=== PATIENT | female | born 1950 | race Caucasian/White ===

== ENCOUNTER 2017-12-25 09:15 | Emergency (ER) | payer MEDICARE, MEDICAID ==
[~2017-12-25] VITALS: Ht 157.5 cm; Wt 69.0 kg
[~2017-12-25 09:15] MED LIST: FOLI-43 PO; LORA0.5T2 PO; METH2.5T PO; NAPR220T66 PO; OMEP40CA34 PO; PANT40TA4 PO; PRED5TAB48 PO
[2017-12-25] MEDS ORDERED: IBUPROFEN 600MG TABLET PO ONE (10:45)
[2017-12-25 12:15] VITALS: BP 138/75
== END 2017-12-25 12:19 | disposition home or self-care (01) ==
LOC: ER 09:56
DX: S32.028A Other fracture of second lumbar vertebra, initial encounter for closed fracture (principal); M54.5 Low back pain; M85.80 Other specified disorders of bone density and structure, unspecified site; F17.200 Nicotine dependence, unspecified, uncomplicated; Z79.899 Other long term (current) drug therapy; Z98.890 Other specified postprocedural states; X58.XXXA Exposure to other specified factors, initial encounter; Y93.89 Activity, other specified; Y92.89 Other specified places as the place of occurrence of the external cause; Y99.8 Other external cause status
CPT/HCPCS: 72100; 99284

== ENCOUNTER 2018-01-26 12:09 | Inpatient (IN) | payer MEDICARE, MEDICAID ==
[~2018-01-26] VITALS: Ht 152.4 cm; Wt 54.0 kg
[2018-01-26] MEDS ORDERED: MAGNESIUM/ALUMINUM HYDROXIDE/SIMETHICONE 30ML UDC PO STA (13:51)
[2018-01-26] MEDS ORDERED: SODIUM CHLORIDE 0.9% 1,000 ML IV ONE (13:51)
[2018-01-26] MEDS ORDERED: FAMOTIDINE 20MG/2ML VIAL IV STA (13:51)
[2018-01-26] MEDS ORDERED: ONDANSETRON HCL 4MG/2ML INJ IV STA (13:51)
[2018-01-26 14:20] LABS: CLARITY URINE CLEAR (CLEAR); COLOR URINE YELLOW (YELLOW); KETONES URINE NEGATIVE (NEGATIVE); LEUKOCYTE ESTERASE URINE 2+ (NEGATIVE); NITRITE URINE NEGATIVE (NEGATIVE); OCCULT BLOOD URINE 1+ (NEGATIVE); PROTEIN URINE NEGATIVE (NEGATIVE); SPECIFIC GRAVITY URINE 1.003 (1.005-1.030); UROBILINOGEN URINE 0.2 E.U./dL (0.2-1.0)
[2018-01-26 14:56] LABS: BASOPHILS % 0.8 % (0.0-2.0); EOSINOPHILS % 3.4 % (0.0-5.0); HEMATOCRIT. 36.6 % (36.0-48.0); HEMOGLOBIN. 12.5 g/dL (12.0-16.0); LYMPHOCYTES % 23.9 % (20.0-50.0); MEAN CORPUSCULAR HEMOGLOBIN 29.4 pg (28.0-32.0); MEAN CORPUSCULAR VOLUME 86.1 fL (81.0-99.0); MEAN PLATELET VOLUME 9.4 fl (7.4-10.4); NEUTROPHILS % 66.9 % (40.0-76.0); PLATELET 332 x1000/uL (130-400); RED BLOOD CELL COUNT 4.25 mill/uL (4.2-5.4)
[2018-01-26 15:09] LABS: CHLORIDE 108 mEq/L (98-107)
[2018-01-26] MEDS ORDERED: POTASSIUM CHLORIDE 20MEQ/PACKET PO ONE (15:45)
[2018-01-26] MEDS ORDERED: MORPHINE SULFATE 4 MG/ML CPJ (NOT FOR IM USE) IV ONE (15:45)
[2018-01-26] MEDS ORDERED: POTASSIUM CHLORIDE 20MEQ TABLET SR PO NR (17:00)
[2018-01-26] MEDS ORDERED: METRONIDAZOLE 500 MG PREMIX 100 ML IV ONE (18:15)
[2018-01-26] MEDS ORDERED: LEVOFLOXACIN 750MG PREMIX 150 ML IV ONE (18:15)
[2018-01-26] MEDS ORDERED: HYDROMORPHONE HCL/PF 2MG/ML CPJ IV ONE (18:15)
[2018-01-26] MEDS ORDERED: IOHEXOL-300 100 ML BOTTLE ONE (22:10)
[2018-01-26 22:40] VITALS: BP 130/62
[2018-01-27] MEDS ORDERED: HYDR-4001 PO (01:19)
[2018-01-27 04:00] VITALS: BP 105/53
[2018-01-27] MEDS ORDERED: ACETAMINOPHEN 325MG TABLET PO PRN (05:00)
[2018-01-27] MEDS ORDERED: LORAZEPAM 0.5MG TABLET PO PRN (05:15)
[2018-01-27] MEDS ORDERED: HYDROCODONE/ACETAMINOPHEN 5/325MG TABLET PO PRN (05:15)
[2018-01-27] MEDS: PANTOPRAZOLE 40MG DR TABLET PO SCH (06:57)
[2018-01-27] MEDS: MORPHINE SULFATE 4 MG/ML CPJ (NOT FOR IM USE) IV PRN ×2 (07:10→19:33)
[2018-01-27] MEDS ORDERED: OMEPRAZOLE 20MG CAPSULE EXTENDED RELEASE PO SCH (07:20)
[2018-01-27] MEDS ORDERED: INFLUENZA VIRUS VACCINE(AFLURIA) 0.5ML SYR IM ONE (08:00)
[2018-01-27] MEDS ORDERED: PNEUMOCOCCAL 23-VAL P-SAC VAC 0.5 ML IM ONE (08:00)
[2018-01-27] MEDS: FOLIC ACID 1MG TABLET PO SCH (09:27)
[2018-01-27] MEDS: PREDNISONE 20MG TABLET PO SCH (09:27)
[2018-01-27] MEDS: DEXT 5%/0.45% NACL KCL 20MEQ/L 1,000 ML IV SCH ×2 (09:27→16:00)
[2018-01-27 11:22] LABS: BASOPHILS % 0.4 % (0.0-2.0); EOSINOPHILS % 3.2 % (0.0-5.0); HEMATOCRIT. 34.7 % (36.0-48.0); HEMOGLOBIN. 11.7 g/dL (12.0-16.0); LYMPHOCYTES % 17.6 % (20.0-50.0); MEAN CORPUSCULAR VOLUME 86.4 fL (81.0-99.0); MEAN PLATELET VOLUME 9.8 fl (7.4-10.4); MONOCYTES % 5.8 % (2.0-8.0); PLATELET 297 x1000/uL (130-400); RED BLOOD CELL COUNT 4.02 mill/uL (4.2-5.4); RED CELL DISTRIBUTION WIDTH 13.9 % (11.6-14.6)
[2018-01-27] MEDS: LEVOFLOXACIN 500MG PREMIX 100 ML IV SCH (11:30)
[2018-01-27 11:41] LABS: CHLORIDE 107 mEq/L (98-107)
[2018-01-27 12:00] VITALS: BP_SYST 109; BP_SYST 99; BP_DIAS 46; BP_DIAS 61
[2018-01-27] MEDS ORDERED: ONDANSETRON HCL 4MG/2ML INJ IV PRN (17:30)
[2018-01-27 20:00] VITALS: BP 95/36
[2018-01-28] VITALS: BP 108/40
[2018-01-28] MEDS: DEXT 5%/0.45% NACL KCL 20MEQ/L 1,000 ML IV SCH ×2 (03:27→16:52)
[2018-01-28 04:00] VITALS: BP 100/33
[2018-01-28 06:57] LABS: BASOPHILS % 0.5 % (0.0-2.0); EOSINOPHILS % 1.7 % (0.0-5.0); HEMATOCRIT. 31.7 % (36.0-48.0); HEMOGLOBIN. 10.8 g/dL (12.0-16.0); LYMPHOCYTES % 26.1 % (20.0-50.0); MEAN CORPUSCULAR HEMOGLOBIN 29.2 pg (28.0-32.0); MEAN CORPUSCULAR VOLUME 85.9 fL (81.0-99.0); MEAN PLATELET VOLUME 9.4 fl (7.4-10.4); MONOCYTES % 6.1 % (2.0-8.0); NEUTROPHILS % 65.6 % (40.0-76.0); PLATELET 302 x1000/uL (130-400); RED BLOOD CELL COUNT 3.69 mill/uL (4.2-5.4); RED CELL DISTRIBUTION WIDTH 14.2 % (11.6-14.6)
[2018-01-28] MEDS: PANTOPRAZOLE 40MG DR TABLET PO SCH (07:18)
[2018-01-28 07:20] LABS: CHLORIDE 110 mEq/L (98-107)
[2018-01-28 08:00] VITALS: BP 101/43
[2018-01-28] MEDS: PREDNISONE 20MG TABLET PO SCH (09:27)
[2018-01-28] MEDS: FOLIC ACID 1MG TABLET PO SCH (09:27)
[2018-01-28] MEDS: LEVOFLOXACIN 500MG PREMIX 100 ML IV SCH (09:27)
[2018-01-28 12:00] VITALS: BP 117/60
[2018-01-28 16:00] VITALS: BP 98/48
[2018-01-28 20:00] VITALS: BP 102/37
[2018-02-01 13:06] LABS: ATYPICAL pANCA <1:20 titer (Neg:<1:20)
[2018-02-01 17:11] LABS: SACCHAROMYCES CEREVISIAE IGG 38.3 Units (0.0-24.9); SACCHAROMYCES CEREVISIAE IGM 26.4 Units (0.0-24.9)
== END 2018-01-28 20:45 | disposition home or self-care (01) | DRG 386 ==
LOC: ER 12:09 → 6WST 18:11 → ENRESERV 19:34
PROVIDERS: ADMIT Internal Medicine; ATTEND Internal Medicine
DX: K50.012 Crohn's disease of small intestine with intestinal obstruction (principal); N39.0 Urinary tract infection, site not specified; M19.90 Unspecified osteoarthritis, unspecified site; K29.50 Unspecified chronic gastritis without bleeding; E87.6 Hypokalemia; Z87.440 Personal history of urinary (tract) infections; Z79.899 Other long term (current) drug therapy; Z98.891 History of uterine scar from previous surgery
CPT/HCPCS: 36415; 74018; 74177; 80048; 86256; 86671; 90686; 90732; 96361; 96365; 96367; 96375; 99285; J1170; J1956; J2270; J2405; J3490; J7030; J7512; Q9967

== ENCOUNTER 2021-03-07 10:16 | Inpatient (IN) | payer MEDICARE, MEDICAID ==
[~2021-03-07] VITALS: Ht 152.4 cm; Wt 44.5 kg
[~2021-03-07 10:16] MED LIST changes: +HYDR-4001 PO; -NAPR220T66 PO; -OMEP40CA34 PO; -PANT40TA4 PO; +PANT40TA51 PO; -PRED5TAB48 PO
[2021-03-07] MEDS ORDERED: HYDROCODONE/ACETAMINOPHEN 5/325MG TABLET PO ONE ×2 (11:15→13:00)
[2021-03-07 14:40] LABS: BASOPHILS % 0.5 % (0.0-2.0); EOSINOPHILS % 0.1 % (0.0-5.0); HEMATOCRIT. 31.1 % (36.0-48.0); HEMOGLOBIN. 10.4 g/dL (12.0-16.0); LYMPHOCYTES % 19.1 % (20.0-50.0); MEAN CORPUSCULAR HEMOGLOBIN 30.4 pg (28.0-32.0); MEAN CORPUSCULAR VOLUME 91.2 fL (81.0-99.0); MEAN PLATELET VOLUME 8.3 fl (7.4-10.4); MONOCYTES % 8.6 % (2.0-8.0); NEUTROPHILS % 71.7 % (40.0-76.0); PLATELET 258 x1000/uL (130-400); RED BLOOD CELL COUNT 3.41 mill/uL (4.2-5.4)
[2021-03-07 14:46] LABS: CHLORIDE 111 mEq/L (98-107)
[2021-03-07] MEDS ORDERED: ENOXAPARIN 40MG/0.4ML SYR SUBCUT SCH (16:15)
[2021-03-07] MEDS ORDERED: LORAZEPAM 0.5MG TABLET PO ONE (16:15)
[2021-03-07] MEDS ORDERED: LORAZEPAM 0.5MG TABLET PO PRN (16:30)
[2021-03-07] MEDS ORDERED: NALOXONE HCL 0.4MG/ML VIAL IV PRN (16:30)
[2021-03-07] MEDS: SODIUM CHLORIDE 0.9% 1,000 ML IV SCH (17:03)
[2021-03-07] MEDS: ENOXAPARIN 30MG/0.3ML SYR SUBCUT SCH (17:03)
[2021-03-07 20:00] VITALS: BP 118/56
[2021-03-07 21:12] VITALS: BP 118/56
[2021-03-07] MEDS: MORPHINE SULFATE 2 MG/ML CPJ (NOT FOR IM USE) IV PRN (22:22)
[2021-03-08] VITALS: BP 119/39
[2021-03-08 04:00] VITALS: BP 123/64
[2021-03-08] MEDS: HYDROCODONE/APAP 7.5/325MG 1 TAB TABLET PO PRN ×2 (04:42→09:53)
[2021-03-08] MEDS: SODIUM CHLORIDE 0.9% 1,000 ML IV SCH (05:50)
[2021-03-08] MEDS: PANTOPRAZOLE 40MG DR TABLET PO SCH (06:52)
[2021-03-08 07:29] LABS: CHLORIDE 114 mEq/L (98-107)
[2021-03-08 07:52] LABS: BASOPHILS % 0.5 % (0.0-2.0); EOSINOPHILS % 0.1 % (0.0-5.0); HEMATOCRIT. 27.7 % (36.0-48.0); HEMOGLOBIN. 9.2 g/dL (12.0-16.0); LYMPHOCYTES % 30.4 % (20.0-50.0); MEAN CORPUSCULAR HEMOGLOBIN 30.3 pg (28.0-32.0); MEAN PLATELET VOLUME 8.7 fl (7.4-10.4); MONOCYTES % 9.1 % (2.0-8.0); NEUTROPHILS % 59.9 % (40.0-76.0); PLATELET 264 x1000/uL (130-400); RED BLOOD CELL COUNT 3.04 mill/uL (4.2-5.4); RED CELL DISTRIBUTION WIDTH 17.1 % (11.6-14.6)
[2021-03-08 08:00] VITALS: BP 142/69
[2021-03-08] MEDS ORDERED: POTASSIUM CHLORIDE 20MEQ TABLET SR PO NR (10:00)
[2021-03-08 12:00] VITALS: BP 128/51
[2021-03-08] MEDS: CHOLECALCIFEROL (D3) 1000 UNIT TABLET PO SCH (13:05)
[2021-03-08] MEDS: CALCIUM 1250MG TABLET (500MG ELEMENTAL CALCIUM) PO SCH (13:05)
[2021-03-08 16:00] VITALS: BP 134/51
[2021-03-08] MEDS ORDERED: DOCUSATE SODIUM 100MG CAPSULE PO PRN (16:00)
[2021-03-08] MEDS ORDERED: LACTULOSE 20G/30ML UDC PO PRN (16:00)
[2021-03-08] MEDS: FOLIC ACID 1MG TABLET PO SCH (16:55)
[2021-03-08] MEDS: PREDNISONE 10MG TABLET PO SCH (16:55)
[2021-03-08] MEDS: ENOXAPARIN 30MG/0.3ML SYR SUBCUT SCH (16:55)
[2021-03-08 20:00] VITALS: BP 132/65
[2021-03-08] MEDS: MORPHINE SULFATE 2 MG/ML CPJ (NOT FOR IM USE) IV PRN (20:22)
[2021-03-08] MEDS: ONDANSETRON HCL 4MG/2ML INJ IV PRN (20:30)
[2021-03-08] MEDS: OXYCODONE HCL/ACETAMINOPHEN 5/325MG TABLET PO PRN (23:24)
[2021-03-09] VITALS: BP 118/60
[2021-03-09 04:00] VITALS: BP 119/57
[2021-03-09] MEDS: PANTOPRAZOLE 40MG DR TABLET PO SCH (06:30)
[2021-03-09] MEDS: MORPHINE SULFATE 2 MG/ML CPJ (NOT FOR IM USE) IV PRN ×2 (06:36→21:24)
[2021-03-09] MEDS: ONDANSETRON HCL 4MG/2ML INJ IV PRN ×2 (06:36→21:24)
[2021-03-09 08:00] VITALS: BP 132/44
[2021-03-09] MEDS: FOLIC ACID 1MG TABLET PO SCH (09:39)
[2021-03-09] MEDS: CHOLECALCIFEROL (D3) 1000 UNIT TABLET PO SCH (09:39)
[2021-03-09] MEDS: CALCIUM 1250MG TABLET (500MG ELEMENTAL CALCIUM) PO SCH (09:39)
[2021-03-09] MEDS: PREDNISONE 10MG TABLET PO SCH (10:00)
[2021-03-09] MEDS: OXYCODONE HCL/ACETAMINOPHEN 5/325MG TABLET PO PRN ×2 (10:25→16:59)
[2021-03-09 12:00] VITALS: BP 114/50
[2021-03-09] MEDS ORDERED: LORAZEPAM 2MG/ML CPJ IV NR (14:45)
[2021-03-09 16:00] VITALS: BP 130/41
[2021-03-09] MEDS: ENOXAPARIN 30MG/0.3ML SYR SUBCUT SCH (16:58)
[2021-03-09 20:00] VITALS: BP 125/40
[2021-03-10] VITALS: BP 120/60
[2021-03-10 04:00] VITALS: BP 117/62
[2021-03-10] MEDS: MORPHINE SULFATE 2 MG/ML CPJ (NOT FOR IM USE) IV PRN (04:10)
[2021-03-10] MEDS: PANTOPRAZOLE 40MG DR TABLET PO SCH (06:36)
[2021-03-10] MEDS: OXYCODONE HCL/ACETAMINOPHEN 5/325MG TABLET PO PRN ×2 (06:47→15:17)
[2021-03-10 08:00] VITALS: BP 120/52
[2021-03-10 08:49] LABS: HEMATOCRIT 30.6 % (36.0-48.0); HEMOGLOBIN 10.4 g/dL (12.0-16.0); MEAN CORPUSCULAR HEMOGLOBIN 30.8 pg (28.0-32.0); MEAN CORPUSCULAR VOLUME 90.8 fL (81.0-99.0); PLATELET 380 x1000/uL (130-400); RED BLOOD CELL COUNT 3.37 mill/uL (4.2-5.4); RED CELL DISTRIBUTION WIDTH 16.7 % (11.6-14.6)
[2021-03-10 09:07] LABS: CHLORIDE 105 mEq/L (98-107)
[2021-03-10] MEDS: CHOLECALCIFEROL (D3) 1000 UNIT TABLET PO SCH (09:34)
[2021-03-10] MEDS: CALCIUM 1250MG TABLET (500MG ELEMENTAL CALCIUM) PO SCH (09:35)
[2021-03-10] MEDS: FOLIC ACID 1MG TABLET PO SCH (09:35)
[2021-03-10] MEDS: PREDNISONE 10MG TABLET PO SCH (09:35)
[2021-03-10 12:00] VITALS: BP 106/44
[2021-03-10] MEDS ORDERED: CYCLOBENZAPRINE 10MG TABLET PO PRN (14:00)
[2021-03-10] MEDS: LIDOCAINE 5% PATCH TOP SCH (14:47)
[2021-03-10 16:00] VITALS: BP 106/58
[2021-03-10] MEDS: ENOXAPARIN 30MG/0.3ML SYR SUBCUT SCH (17:12)
[2021-03-10] MEDS ORDERED: OXYCODONE HCL/ACETAMINOPHEN 5/325MG TABLET PO PRN (19:00)
[2021-03-10 20:00] VITALS: BP 119/51
[2021-03-11] VITALS: BP_SYST 110; BP_SYST 120; BP_SYST 135; BP_DIAS 43; BP_DIAS 60; BP_DIAS 79
[2021-03-11 04:00] VITALS: BP 114/56
[2021-03-11 08:00] VITALS: BP 119/55
[2021-03-11] MEDS: MORPHINE SULFATE 2 MG/ML CPJ (NOT FOR IM USE) IV PRN ×2 (08:23→17:12)
[2021-03-11] MEDS: CHOLECALCIFEROL (D3) 1000 UNIT TABLET PO SCH (08:26)
[2021-03-11] MEDS: CALCIUM 1250MG TABLET (500MG ELEMENTAL CALCIUM) PO SCH (08:26)
[2021-03-11] MEDS: PREDNISONE 10MG TABLET PO SCH (08:26)
[2021-03-11] MEDS: FOLIC ACID 1MG TABLET PO SCH (08:26)
[2021-03-11] MEDS: LIDOCAINE 5% PATCH TOP SCH (08:27)
[2021-03-11] MEDS: FAMOTIDINE 20MG TABLET PO SCH (08:27)
[2021-03-11 12:00] VITALS: BP 112/52
[2021-03-11 16:00] VITALS: BP 105/44
[2021-03-11] MEDS: ENOXAPARIN 30MG/0.3ML SYR SUBCUT SCH (17:12)
[2021-03-11 20:00] VITALS: BP 110/64
[2021-03-12] VITALS: BP 109/64
[2021-03-12] MEDS: MORPHINE SULFATE 2 MG/ML CPJ (NOT FOR IM USE) IV PRN ×2 (01:09→09:06)
[2021-03-12 04:00] VITALS: BP 122/60
[2021-03-12 08:00] VITALS: BP 99/53
[2021-03-12] MEDS: FAMOTIDINE 20MG TABLET PO SCH (09:05)
[2021-03-12] MEDS: FOLIC ACID 1MG TABLET PO SCH (09:05)
[2021-03-12] MEDS: CHOLECALCIFEROL (D3) 1000 UNIT TABLET PO SCH (09:05)
[2021-03-12] MEDS: LIDOCAINE 5% PATCH TOP SCH (09:05)
[2021-03-12] MEDS: CALCIUM 1250MG TABLET (500MG ELEMENTAL CALCIUM) PO SCH (09:05)
[2021-03-12] MEDS: PREDNISONE 10MG TABLET PO SCH (09:05)
[2021-03-12] MEDS ORDERED: MORPHINE SULFATE 2 MG/ML CPJ (NOT FOR IM USE) IV PRN (10:30)
[2021-03-12 12:00] VITALS: BP 113/53
[2021-03-12] MEDS ORDERED: LIDOCAINE 5% PATCH TOP SCH (14:30)
[2021-03-12 16:00] VITALS: BP 102/46
[2021-03-12] MEDS: HYDROCODONE/ACETAMINOPHEN 10/325MG TABLET PO PRN (17:48)
[2021-03-12] MEDS: ENOXAPARIN 30MG/0.3ML SYR SUBCUT SCH (17:48)
[2021-03-12] MEDS: METHYL SALICYLATE/MENTHOL CREAM 85GM TOP SCH (17:49)
[2021-03-12 20:00] VITALS: BP 113/50
[2021-03-12] MEDS: GABAPENTIN 100MG CAPSULE PO SCH (22:43)
[2021-03-13] VITALS: BP 113/52
[2021-03-13 04:00] VITALS: BP 115/58
[2021-03-13] MEDS: GABAPENTIN 100MG CAPSULE PO SCH ×3 (06:17→21:54)
[2021-03-13] MEDS: LIDOCAINE 5% PATCH TOP SCH ×2 (09:00→10:26)
[2021-03-13] MEDS: FAMOTIDINE 20MG TABLET PO SCH (09:00)
[2021-03-13] MEDS: FOLIC ACID 1MG TABLET PO SCH (09:00)
[2021-03-13] MEDS: CALCIUM 1250MG TABLET (500MG ELEMENTAL CALCIUM) PO SCH (10:23)
[2021-03-13] MEDS: PREDNISONE 10MG TABLET PO SCH (10:23)
[2021-03-13] MEDS: CHOLECALCIFEROL (D3) 1000 UNIT TABLET PO SCH (10:23)
[2021-03-13] MEDS: METHYL SALICYLATE/MENTHOL CREAM 85GM TOP PRN ×2 (13:35→13:38)
[2021-03-13 16:00] VITALS: BP 109/54
[2021-03-13] MEDS: ENOXAPARIN 30MG/0.3ML SYR SUBCUT SCH (16:32)
[2021-03-13 20:00] VITALS: BP 115/44
[2021-03-14 04:00] VITALS: BP 122/53
[2021-03-14] MEDS: GABAPENTIN 100MG CAPSULE PO SCH ×3 (06:20→21:56)
[2021-03-14 06:49] LABS: BASOPHILS % 1.3 % (0.0-2.0); EOSINOPHILS % 0.1 % (0.0-5.0); HEMATOCRIT. 32.9 % (36.0-48.0); HEMOGLOBIN. 10.9 g/dL (12.0-16.0); LYMPHOCYTES % 44.2 % (20.0-50.0); MEAN CORPUSCULAR HEMOGLOBIN 30.9 pg (28.0-32.0); MEAN CORPUSCULAR VOLUME 92.8 fL (81.0-99.0); MEAN PLATELET VOLUME 8.6 fl (7.4-10.4); MONOCYTES % 10.2 % (2.0-8.0); NEUTROPHILS % 44.2 % (40.0-76.0); PLATELET 439 x1000/uL (130-400); RED BLOOD CELL COUNT 3.54 mill/uL (4.2-5.4); RED CELL DISTRIBUTION WIDTH 16.7 % (11.6-14.6)
[2021-03-14 06:54] LABS: CHLORIDE 110 mEq/L (98-107)
[2021-03-14 08:00] VITALS: BP 120/57
[2021-03-14] MEDS: CALCIUM 1250MG TABLET (500MG ELEMENTAL CALCIUM) PO SCH (10:12)
[2021-03-14] MEDS: PREDNISONE 10MG TABLET PO SCH (10:12)
[2021-03-14] MEDS: FOLIC ACID 1MG TABLET PO SCH (10:13)
[2021-03-14] MEDS: LIDOCAINE 5% PATCH TOP SCH (10:18)
[2021-03-14] MEDS: FAMOTIDINE 20MG TABLET PO SCH (10:25)
[2021-03-14] MEDS: CHOLECALCIFEROL (D3) 1000 UNIT TABLET PO SCH (10:25)
[2021-03-14 11:58] VITALS: BP 130/69
[2021-03-14] MEDS: METHYL SALICYLATE/MENTHOL CREAM 85GM TOP SCH (12:56)
[2021-03-14] MEDS: HYDROCODONE/ACETAMINOPHEN 10/325MG TABLET PO PRN ×2 (13:57→21:23)
[2021-03-14 16:00] VITALS: BP 125/66
[2021-03-14] MEDS: ENOXAPARIN 30MG/0.3ML SYR SUBCUT SCH (17:05)
[2021-03-14] MEDS: METHYL SALICYLATE/MENTHOL CREAM 85GM TOP PRN (17:06)
[2021-03-14 20:00] VITALS: BP 99/46
[2021-03-15] VITALS: BP 97/49
[2021-03-15 04:00] VITALS: BP 110/54
[2021-03-15] MEDS: GABAPENTIN 100MG CAPSULE PO SCH ×2 (06:09→14:00)
[2021-03-15 08:00] VITALS: BP 110/56
[2021-03-15] MEDS: LIDOCAINE 5% PATCH TOP SCH (08:35)
[2021-03-15] MEDS: CALCIUM 1250MG TABLET (500MG ELEMENTAL CALCIUM) PO SCH (08:36)
[2021-03-15] MEDS: HYDROCODONE/ACETAMINOPHEN 10/325MG TABLET PO PRN ×3 (08:36→17:53)
[2021-03-15] MEDS: PREDNISONE 10MG TABLET PO SCH (08:36)
[2021-03-15] MEDS: FOLIC ACID 1MG TABLET PO SCH (09:00)
[2021-03-15] MEDS: CHOLECALCIFEROL (D3) 1000 UNIT TABLET PO SCH (09:00)
[2021-03-15] MEDS: FAMOTIDINE 20MG TABLET PO SCH (09:00)
[2021-03-15 12:00] VITALS: BP 108/51
[2021-03-15] MEDS ORDERED: HYDR-4001 MT (12:59)
[2021-03-15] MEDS: METHYL SALICYLATE/MENTHOL CREAM 85GM TOP PRN ×2 (13:42→16:14)
[2021-03-15] MEDS ORDERED: CALCITONIN,SALMON, 3.7 ML NASAL SPRAY ONENSTRL SCH (14:00)
[2021-03-15] MEDS: ENOXAPARIN 30MG/0.3ML SYR SUBCUT SCH (16:13)
[2021-03-15 17:46] VITALS: BP 104/50
[2021-03-15 20:00] VITALS: BP 115/62
== END 2021-03-15 20:30 | disposition home health service (06) | DRG 535 ==
LOC: ER 10:16 → 6EST 16:00 → EDBEDREQ 16:04 → EDBEDREQTM 16:04 → ENRESERV 19:32
PROVIDERS: ADMIT Family Medicine Adult Medicine; ATTEND Internal Medicine
DX: S32.592A Other specified fracture of left pubis, initial encounter for closed fracture (principal); E43 Unspecified severe protein-calorie malnutrition; S22.069A Unspecified fracture of T7-T8 vertebra, initial encounter for closed fracture; S22.079A Unspecified fracture of T9-T10 vertebra, initial encounter for closed fracture; M80.8 Other osteoporosis with current pathological fracture; K50.90 Crohn's disease, unspecified, without complications; S22.059A Unspecified fracture of T5-T6 vertebra, initial encounter for closed fracture; Z68.1 Body mass index [BMI] 19.9 or less, adult; E87.6 Hypokalemia; M19.90 Unspecified osteoarthritis, unspecified site; W01.0XXA Fall on same level from slipping, tripping and stumbling without subsequent striking against object, initial encounter; E83.51 Hypocalcemia; D64.9 Anemia, unspecified; M47.9 Spondylosis, unspecified; Z79.891 Long term (current) use of opiate analgesic; Z79.899 Other long term (current) drug therapy; Z82.49 Family history of ischemic heart disease and other diseases of the circulatory system; Y93.89 Activity, other specified; Y92.89 Other specified places as the place of occurrence of the external cause; Y99.8 Other external cause status
CPT/HCPCS: 36415; 71045; 72040; 72070; 72100; 72128; 72141; 72146; 72148; 72170; 72192; 73700; 80048; 80053; 82306; 82962; 84443; 85025; 85027; 93005; 97116; 97161; 97166; 97530; 99285; J1650; J2060; J2270; J2405; J7512